=== PATIENT | male | born 1975 | race Caucasian/White ===

== ENCOUNTER 2023-02-17 08:30 | Emergency (ER) | payer OTHER, BC, SELFPAY ==
[2023-02-17] VITALS (13 sets, daily range): BP systolic 91–133; BP diastolic 61–90; PULSE 63–87; RESP 12–20; TEMP 36.4; O2SAT 95–100
--- NOTE | ~2023-02-17 | CT_ITS ---
EXAMINATION: CT brain wo con INDICATION: Head injury COMPARISON: None TECHNIQUE: Standard unenhanced head CT. The dose-length product (DLP) was 681.00 mGy-cm. The mA was a djusted according to patient size. Iterative reconstruction technique was employed. FINDINGS: No intracranial hemorrhage, acute infarction, or abnormal mass lesion. The ventricles are n ormal. No abnormal mass effect or midline shift. The nichole-white matter differentiation is normal. The basal cisterns are patent. The orbits are normal. There is mild mucosal thickening of the paranasal sinuses. There is minimal opacification of the left mastoid air cells. IMPRESSION: 1. No acute intracranial abnormality. Reviewed, dictated and finalized at location A.
--- NOTE | 2023-02-17 08:40 | ECG_ITS ---
Measurements Intervals [place] Rate: 73 P: 62 MT: 179 QRS: 72 QRSD: 114 T: 72 QT: 407 QTc: 449 Interpretive Statements SINUS RHYTHM MODERATE INTRAVENTRICULAR CONDUCTION DELAY [110+ ms QRS DURATION] NO PREVIOUS ECG AVAILABLE FOR COMPARISON Electronically Signed On 02-17-2023 11:01:30 CDT by Mar Mosqueda M.D.
--- NOTE | 2023-02-17 09:21 | ED.GENADULT ---
HPI - General Adult General Chief complaint: Alcohol <Eder Paulson PA-C - Last Filed: 02/17/23 18:14> Stated complaint: ETOH withdrawal <Eder Paulson PA-C - Last Filed: 02/17/23 18:14> Time Seen by Provider: 02/17/23 09:00 <Eder Paulson PA-C - Last Filed: 02/17/23 18:14> Source: patient <FRANK Villegas Last Filed: 02/17/23 18:14> Mode of arrival: ambulatory <Eder Paulson PA-C - Last Filed: 02/17/23 18:14> Limitations: no limitations <Eder Paulson PA-C - Last Filed: 02/17/23 18:14> History of Present Illness HPI narrative: This is a 47-year-old male who presents to the ED with chief complaint of alcoholic intoxication. He states he has been on a 7-day lui drinking only vodka. States his last drink was about 8: 30 AM, 15 minutes prior to arrival. Denies any other substance use. He states he did have a fall yesterday and is unsure if he hit his head. He states he has a little bit of a headache now. He also states my kidneys are shutting down. Patient states that you need to shut me down. He alludes that he is referring to alcoholic detoxification. Denies any further complaints. Denies any abdominal pain, chest pain, shortness of breath, cough, numbness, weakness. <Eder Paulson PA-C - Last Filed: 02/17/23 18:14> Related Data Allergies/adverse reactions: Allergies Allergy/AdvReac Type Severity Reaction Status Date / Time No Known Allergies Allergy Verified 02/17/23 08:45 <Eder Paulson PA-C - Last Filed: 02/17/23 18:14> Review of Systems Review of Systems: All systems as dictated in HPI <Eder Paulson PA-C - Last Filed: 02/17/23 18:14> Exam Narrative: GENERAL: Clinically intoxicated. HEAD: Normocephalic, atraumatic. EYES: PERRLA and EOMI. ENT: Nares clear, no rhinorrhea or epistaxis. Mucous membranes moist. Oropharynx without tonsillar hypertrophy exudate or other lesions. NECK: Supple. No adenopathy or masses. CHEST: No respiratory distress. Clear to auscultation. No wheezes rales or rhonchi HEART: Regular rate and rhythm. No murmur heard. Normal peripheral pulses. ABDOMEN: Soft, nontender, nondistended, normal active bowel sounds. MSK: Normal range of motion. No edema. SKIN: Warm, dry, no rash. NEURO: Alert and oriented x3. No focal deficits. PSYCH: Normal mood and affect. <Eder Paulson PA-C - Last Filed: 02/17/23 18:14> Course Course Emergency Course: Reevaluation 1500: Patient is still having a headache, nausea seems to be shaking when I enter the room. Seems to be agitated as well, but cooperative. <Eder Paulson PA-C - Last Filed: 02/17/23 18:14> RADIO ARTIST/PA Physician Supervision This visit was performed by both a physician and an APC. I performed all aspects of the MDM as documented. <Kailee Arana MD - Last Filed: 02/17/23 21:21> Vital Signs Vital signs: Vital Signs Temperature 97.6 F 02/17/23 08:40 Pulse Rate 78 02/17/23 08:40 Respiratory Rate 15 02/17/23 08:40 Blood Pressure 126/90 02/17/23 08:40 Pulse Oximetry 97 02/17/23 08:40 Oxygen Delivery Room Air 02/17/23 08:40 Temperature 97.6 F 02/17/23 08:40 Pulse Rate 73 02/17/23 17:21 Respiratory Rate 16 02/17/23 17:21 Blood Pressure 133/89 02/17/23 17:21 Pulse Oximetry 98 02/17/23 17:21 Oxygen Delivery Room Air 02/17/23 08:40 <Eder Paulson PA-C - Last Filed: 02/17/23 18:14> Vital Signs Temperature 97.6 F 02/17/23 08:40 Pulse Rate 78 02/17/23 08:40 Respiratory Rate 15 02/17/23 08:40 Blood Pressure 126/90 02/17/23 08:40 Pulse Oximetry 97 02/17/23 08:40 Oxygen Delivery Room Air 02/17/23 08:40 Temperature 97.6 F 02/17/23 08:40 Pulse Rate 73 02/17/23 17:21 Respiratory Rate 16 02/17/23 17:21 Blood Pressure 133/89 02/17/23 17:21 Pulse Oximetry 98 02/17/23 17:21 Oxygen Delivery Room Air 02/17/23 08:40 <Kailee Arana MD - Last Filed: 02/17/23 21:21>
[2023-02-17] MEDS: SODIUM CHLORIDE 0.9% IV 1,000 ML 999 ML IV CONT ×2 (09:45→13:06)
[2023-02-17 10:00] LABS: Basophils Absolute Auto 0.1 K/mm3 (0.0-0.1); Basophils Percent Auto 0.7 % (0.2-1.2); Eosinophils Absolute Auto 0.2 K/mm3 (0-0.3); Eosinophils Percent Auto 3.1 % (0-4.4); Hematocrit 39.5 % (42.0-52.0); Hemoglobin 13.9 g/dL (14.0-18.0); Immature Granulocyte Absolute 0.02 K/mm3 (0.00-0.031); Immature Granulocyte Percent A 0.3 % (0-0.5); Lymphocytes Absolute Auto 3.31 K/mm3 (0.9-3.2); Lymphocytes Percent Auto 49.5 % (18.3-44.2); Mean Corpuscular HGB Conc 35.2 g/dl (32-36); Mean Corpuscular Hemoglobin 30.5 pg (26-34); Mean Corpuscular Volume 86.6 fl (80-100); Mean Platelet Volume 10.2 fl (7.4-10.4); Monocytes Absolute Auto 0.5 K/mm3 (0.1-0.6); Monocytes Percent Auto 7.5 % (2.6-8.5); Neutrophils Absolute Auto 2.6 K/mm3 (1.3-6.7); Neutrophils Percent Auto 38.9 % (45.5-73.1); Platelet Count Result 210 k/mm3 (150-375); Red Blood Count 4.56 M/mm3 (4.6-6.20); Red Cell Distribution Width 11.7 % (11.5-14.5); White Blood Count 6.7 K/mm3 (4.5-10.0)
[2023-02-17 10:11] LABS: Alanine Aminotransferase 23 U/L (6-50); Albumin Level 4.2 g/dL (3.5-5.1); Alkaline Phosphatase 53 U/L (38-126); Anion Gap 9 mmol/L (8-16); Aspartate Amino Transferase 27 U/L (17-59); Bilirubin,Total 0.5 mg/dL (0.2-1.3); Blood Urea Nitrogen 17 mg/dL (9-20); Calcium 8.1 mg/dL (8.4-10.2); Carbon Dioxide 26 mmol/L (22-30); Chloride 106 mmol/L (98-107); Estimated CRCL calculation 150 ml/min; Estimated Glomerular Filt Rate > 60; Glucose 143 mg/dL (65-110); Potassium 3.7 mmol/L (3.4-5.0); Sodium 141 mmol/L (137-145)
--- NOTE | 2023-02-17 12:35 | PCCCNOTE ---
Met with pt and person with him. He is still not clear and able to make sound decisions. They were given writtne list of ETOH/substance abuse resources. They also wanted to talk with Markus. Angela introduced and she will be following him as OP when he discharges. Following
[2023-02-17] MEDS: ONDANSETRON INJ 4 MG/2 ML VIAL IV PUSH (13:07)
--- NOTE | 2023-02-17 14:56 | PC.NURSE ---
Updated provider on pt CIWA reassessment score of 13.
[2023-02-17] MEDS: LORazepam INJ (*CRX) 2 MG/ML VIAL 1 MG IV PUSH (15:08)
[2023-02-17 15:54] LABS: Ethanol 257 mg/dL (<10)
[2023-02-17] MEDS: chlordiazePOXIDE (*CRX) 25 MG CAPSULE 50 MG PO (16:55)
== END 2023-02-17 17:25 | disposition home or self-care (01) ==
PROVIDERS: Emergency Provider Physician Assistant; PCP Emergency Medicine
DX: F10.239 Alcohol dependence with withdrawal, unspecified (principal); Y90.8 Blood alcohol level of 240 mg/100 ml or more; R51.9 Headache, unspecified; W19.XXXA Unspecified fall, initial encounter
CPT/HCPCS: 36415; 70450; 80053; 80307; 85025; 93005; 96361; 96374; 96375; 99284; A9270; J2060; J2405; J7030

== ENCOUNTER 2023-03-20 09:01 | Emergency (ER) | payer OTHER, BC, SELFPAY ==
--- NOTE | ~2023-03-20 | CT_ITS ---
EXAMINATION: CT BRAIN W/O DATE: 03/20/2023 09:52 INDICATION: Headache TECHNIQUE: Computed tomography (CT) of the head was performed without intravenous contrast. The dose- length product was 605.33 mGy-cm. Automated exposure control and iterative reconstruction technique w ere employed. COMPARISON: No prior studies for comparison. FINDINGS: Normal brain parenchymal volume for age. Normal nichole-white differentiation. No acute intrac ranial hemorrhage, infarction, mass or mass effect. No ventriculomegaly or midline shift. Midline sagittal images demonstrate a normal corpus callosum, c raniovertebral junction and sella turcica. Basilar cisterns are patent. Paranasal sinuses and mastoids are pneumatized. No depressed skull fractures. IMPRESSION: 1. No acute intracranial abnormality. Reviewed, dictated and finalized at location A.
--- NOTE | ~2023-03-20 | CT_ITS ---
EXAMINATION: CT cervical spine wo con DATE: 03/20/2023 09:52 INDICATION: Neck pain TECHNIQUE: Computed tomography (CT) of the cervical spine was performed without intravenous contrast. The dose-length product was 508 mGy-cm. Automated exposure control and iterative reconstruction technique were employed. COMPARISON: None FINDINGS: Straightening of cervical lordosis. There is mild degenerative disc disease with spondylosi s at C4-5 and C5-6. There is mild multilevel uncinate hypertrophy. There is emphysematous changes of the lung apices. Craniovertebral junction is normal. No acute fracture or traumatic malalignment. No evidence for perched facet. No significant paraspinal soft tissue abnormality. IMPRESSION: 1. Mild cervical spondylosis. Reviewed, dictated and finalized at location A.
[2023-03-20 09:05] VITALS: BP 132/90; PULSE 75; RESP 18; TEMP 36.4; O2SAT 97
--- NOTE | 2023-03-20 09:36 | ED.GENADULT ---
HPI - General Adult General Chief complaint: Back Pain/Injury Stated complaint: Back pain; dizzy Time Seen by Provider: 03/20/23 09:04 History of Present Illness HPI narrative: Tomas Ronquillo is a 47 y/o male with reports of drinking EOTH pretty hard last night and was at work this morning and went to reach for something heavy and felt something pop/pain to his right lateral neck and now he is also having a headache, he doesn't feel like this is a hangover headache but feels like he pulled something in his neck. He denies chest pain/ shortness of breath/numbness/tingling/ smells of ETOH he admits to ETOH last night but not this morning. Related Data Allergies Allergy/AdvReac Type Severity Reaction Status Date / Time No Known Allergies Allergy Verified 02/17/23 08:45 Review of Systems Review of Systems: CONSTITUTIONAL: Denies fever, chills, or sweats. EYES: Denies visual changes, redness, or discharge. ENT: Denies rhinorrhea, congestion, sore throat, or otalgia. CARDIOVASCULAR: Denies chest pain, palpitations, or edema. RESPIRATORY: Denies cough or dyspnea. GASTROINTESTINAL: Denies abdominal pain, nausea, vomiting, or diarrhea. GENITOURINARY: Denies dysuria or hematuria. SKIN: Denies rash or itching. MUSCULOSKELETAL: Denies back pain, joint pain, or myalgia. NEUROLOGIC: reports headache started this morning, no numbness, dizziness, or weakness. PSYCHIATRIC: Denies anxiety or depression. Exam Narrative: GENERAL: Well-appearing, well-nourished, and in no acute distress. HEAD: Normocephalic, atraumatic. EYES: PERRLA and EOMI. ENT: Nares clear, no rhinorrhea or epistaxis. Mucous membranes moist. Oropharynx without tonsillar hypertrophy exudate or other lesions. NECK: Supple. No adenopathy or masses. No carotid bruits or JVD CHEST: Clear to auscultation. No respiratory distress. No wheezes rales or rhonchi HEART: Regular rate and rhythm. No murmur heard. Normal peripheral pulses. ABDOMEN: Soft, nontender, nondistended, normal active bowel sounds. EXTREMITIES: Normal range of motion. No edema. SKIN: Warm, dry, no rash. NEURO: No focal deficits. Alert and oriented x3. PSYCH: Normal mood and affect. Course Vital Signs Vital signs: Vital Signs Temperature 36.4 C 03/20/23 09:05 Pulse Rate 75 03/20/23 09:05 Respiratory Rate 18 03/20/23 09:05 Blood Pressure 132/90 03/20/23 09:05 Pulse Oximetry 97 03/20/23 09:05 Oxygen Delivery Room Air 03/20/23 09:05 Temperature 36.4 C 03/20/23 09:05 Pulse Rate 75 03/20/23 09:05 Respiratory Rate 18 03/20/23 09:05 Blood Pressure 132/90 03/20/23 09:05 Pulse Oximetry 97 03/20/23 09:05 Oxygen Delivery Room Air 03/20/23 09:05 Medical Decision Making MDM Narrative Medical decision making narrative: On exam pt's neuro exam is intact, 5/5 strength noted to upper and lower extremities Pupils equal and reactive No cervical/ thoracic/lumbar midline spinal tenderness noted with palpation / no step offs/ erythema/ ecchymosis/ deformity noted on exam. Ambulatory / moving all extremities well, he admits to drinking heavy last night and having a a headache today after reaching to pull on something heavy today while at work and felt pain to his neck as well He states that he feels that he pulled something in his neck plan to check CT of head and neck and treat him with a migraine cocktail while checking basic labs. Patient re-evaluated and reports that his headache is gone and feeling better, he is updated that his CT's are stable and that he likely pulled a muscle in his neck, pt agrees with this and denies having any further questions or needs. He sates that he is not driving, he has someone that is coming to pick him up. Differential Diagnosis Differential Diagnosis: Neck strain/ head bleed/ migraine/ hangover/ Medical Records Medical records reviewed: Yes I reviewed the external patient's medical records. Vital Signs Vital Signs: V
[2023-03-20 09:54] VITALS: BP 94/69; O2SAT 97
[2023-03-20 09:55] VITALS: O2SAT 95
[2023-03-20] MEDS: PROCHLORPERAZINE EDISYLATE 10 MG/2 ML VIAL IV PUSH (09:55)
[2023-03-20] MEDS: diphenhydrAMINE HCl INJ 50 MG/ML VIAL 25 MG IV PUSH (09:55)
[2023-03-20] MEDS: SODIUM CHLORIDE 0.9% IV 1,000 ML 999 ML IV CONT (09:56)
[2023-03-20 10:00] VITALS: O2SAT 95
[2023-03-20 10:01] VITALS: BP 106/74; O2SAT 91
[2023-03-20 10:02] LABS: Basophils Percent Auto 0.5 % (0.2-1.2); Eosinophils Absolute Auto 0.2 K/mm3 (0-0.3); Eosinophils Percent Auto 3.8 % (0-4.4); Hematocrit 38.7 % (42.0-52.0); Hemoglobin 13.5 g/dL (14.0-18.0); Immature Granulocyte Absolute 0.01 K/mm3 (0.00-0.031); Immature Granulocyte Percent A 0.2 % (0-0.5); Lymphocytes Absolute Auto 2.81 K/mm3 (0.9-3.2); Lymphocytes Percent Auto 50.7 % (18.3-44.2); Mean Corpuscular HGB Conc 34.9 g/dl (32-36); Mean Corpuscular Hemoglobin 29.9 pg (26-34); Mean Corpuscular Volume 85.8 fl (80-100); Mean Platelet Volume 10.1 fl (7.4-10.4); Monocytes Absolute Auto 0.4 K/mm3 (0.1-0.6); Monocytes Percent Auto 7.4 % (2.6-8.5); Neutrophils Absolute Auto 2.1 K/mm3 (1.3-6.7); Neutrophils Percent Auto 37.4 % (45.5-73.1); Platelet Count Result 192 k/mm3 (150-375); Red Blood Count 4.51 M/mm3 (4.6-6.20); Red Cell Distribution Width 12.1 % (11.5-14.5); White Blood Count 5.5 K/mm3 (4.5-10.0)
[2023-03-20 10:12] LABS: Anion Gap 13 mmol/L (8-16); Blood Urea Nitrogen 10 mg/dL (9-20); Calcium 8.2 mg/dL (8.4-10.2); Carbon Dioxide 23 mmol/L (22-30); Chloride 103 mmol/L (98-107); Estimated CRCL calculation 147 ml/min; Estimated Glomerular Filt Rate > 60; Glucose 132 mg/dL (65-110); Potassium 3.8 mmol/L (3.4-5.0); Sodium 139 mmol/L (137-145)
[2023-03-20] MEDS: KETOROLAC 30 MG/ML VIAL (*BKC) IV PUSH (10:15)
== END 2023-03-20 10:36 | disposition home or self-care (01) ==
PROVIDERS: Emergency Provider Nurse Practitioner Family; PCP Emergency Medicine
DX: S16.1XXA Strain of muscle, fascia and tendon at neck level, initial encounter (principal); M47.812 Spondylosis without myelopathy or radiculopathy, cervical region; X50.0XXA Overexertion from strenuous movement or load, initial encounter
CPT/HCPCS: 36415; 70450; 72125; 80048; 85025; 96361; 96374; 96375; 99284; J0780; J1200; J1885; J7030

== ENCOUNTER 2024-12-16 04:11 | Emergency (ER) | payer OTHER, SELFPAY ==
[2024-12-16] VITALS (9 sets, daily range): BP systolic 105–148; BP diastolic 62–91; PULSE 78–87; RESP 16; TEMP 36.6; O2SAT 93–97
[2024-12-16] MEDS: ORPHENADRINE CITRATE 100 MG TABLET.ER PO (05:03)
[2024-12-16] MEDS: HYDROcodone/acetaminophen (*CRX) 5-325 MG TABLET 1 TAB PO (05:03)
[2024-12-16] MEDS: dexAMETHasone SOD PHOS INJ 10 MG/ML 1 ML VIAL IM (05:04)
[2024-12-16] MEDS: KETOROLAC 30 MG/ML VIAL (*BKC) IM (05:05)
[2024-12-16] MEDS: LIDOCAINE 5% PATCH 1 PATCH TRANSDERM (05:05)
--- NOTE | 2024-12-16 05:38 | ED_ITS ---
HPI - General Adult General Chief complaint: Extremity Problem,Nontraumatic Stated complaint: right hip pain Time Seen by Provider: 12/16/24 04:30 History of Present Illness HPI narrative: Patient 49-year-old gentleman who presents emergency department with chief complaint of right hip pain radiating down his right leg. The patient states his leg locked up on him reports that he has pain that radiates to the but she down there is leg patient does report there is little bit of a tingly sensation on his right foot on the lateral aspect patient denies bowel or bladder incontinence denies trauma Related Data Allergies Allergy/AdvReac Type Severity Reaction Status Date / Time No Known Allergies Allergy Verified 02/17/23 08:45 Review of Systems Review of Systems: A 10 system review of systems was completed on the patient and is negative except for what is stated in the HPI. Nursing and ancillary documentation was reviewed. Exam Narrative: GENERAL: Well-appearing, well-nourished, and in no acute distress. HEAD: Normocephalic, atraumatic. EYES: PERRLA and EOMI. ENT: Nares clear, no rhinorrhea or epistaxis. Mucous membranes moist. NECK: Supple. CHEST: Clear to auscultation. No respiratory distress. HEART: Regular rate and rhythm. No murmur heard. Normal peripheral pulses. ABDOMEN: Soft, nontender, nondistended, normal active bowel sounds. EXTREMITIES: Normal range of motion. No edema. Tenderness to palpation the right SI joint along the sciatic nerve SKIN: Warm, dry, no rash. NEURO: No focal deficits. Alert and oriented x3. No footdrop, no saddle anesthesia PSYCH: Normal mood and affect. Course Vital Signs Vital signs: Vital Signs Temperature 36.6 C 12/16/24 04:15 Pulse Rate 87 12/16/24 04:15 Respiratory Rate 16 12/16/24 04:15 Blood Pressure 122/79 12/16/24 04:15 Pulse Oximetry 97 12/16/24 04:15 Oxygen Delivery Room Air 12/16/24 04:15 Temperature 36.6 C 12/16/24 04:15 Pulse Rate 87 12/16/24 04:15 Respiratory Rate 16 12/16/24 04:15 Blood Pressure 105/62 12/16/24 05:02 Pulse Oximetry 93 12/16/24 05:30 Oxygen Delivery Room Air 12/16/24 04:15 Medical Decision Making Vital Signs Vital Signs: Vital Signs Temperature 36.6 C 12/16/24 04:15 Pulse Rate 87 12/16/24 04:15 Respiratory Rate 16 12/16/24 04:15 Blood Pressure 122/79 12/16/24 04:15 Pulse Oximetry 97 12/16/24 04:15 Oxygen Delivery Room Air 12/16/24 04:15 Temperature 36.6 C 12/16/24 04:15 Pulse Rate 87 12/16/24 04:15 Respiratory Rate 16 12/16/24 04:15 Blood Pressure 105/62 12/16/24 05:02 Pulse Oximetry 93 12/16/24 05:30 Oxygen Delivery Room Air 12/16/24 04:15 Discharge Plan Discharge Clinical Impression: Right sided sciatica Patient Disposition: Home Condition: Stable Instructions: Antibiotic Form, Sciatica (ED) Patient Language: Puerto Rican Prescriptions: New diclofenac potassium 50 mg tablet 50 mg PO TID PRN (Reason: pain) Qty: 30 0RF prednisone 20 mg tablet 40 mg PO DAILY 5 Days Qty: 10 0RF lidocaine [Lidoderm] 5 % adhesive patch,medicated 1 patch topical DAILY Qty: 15 0RF Rx Instructions: leave on most painful area for up to 12 hrs cyclobenzaprine 10 mg tablet 10 mg PO TID PRN (Reason: muscle spasm) Qty: 21 0RF No Action chlordiazepoxide HCl 25 mg capsule 25 mg PO BID PRN (Reason: alcohol withdrawal) Qty: 14 0RF Rx Instructions: 50mg of chlordiazepoxide every 8 hours for two days, then decrease to 25mg every 8 hours for another two days followed by 25mg PRN as needed. lidocaine 5 % adhesive patch,medicated 1 patch topical DAILY Qty: 15 0RF Rx Instructions: leave on most painful area for up to 12 hrs cyclobenzaprine 5 mg tablet 5 mg PO BID PRN (Reason: muscle spasm) Qty: 14 0RF Follow-up/Referrals: Guillermo Mukherjee MD [Primary Care Provider] - Time of Disposition: 05:41
== END 2024-12-16 06:02 | disposition home or self-care (01) ==
PROVIDERS: Emergency Provider Emergency Medicine; PCP Emergency Medicine
DX: M54.31 Sciatica, right side (principal)
CPT/HCPCS: 96372; 99284; A9270; J1100; J1885

== ENCOUNTER 2024-12-19 23:54 | Emergency (ER) | payer OTHER, SELFPAY ==
--- NOTE | ~2024-12-19 | CT_ITS ---
Noncontrast CT scan of the lumbar spine CLINICAL HISTORY: Right-sided radiculopathy TECHNIQUE: Axial noncontrast imaging of the lumbar spine was performed. Sagittal and coronal reformat kris images were constructed. Dose reduction technique was used on this scan by utilizing automated ex posure control and iterative reconstruction technique. The dose-length product (DLP) was 1545.55 mGy- cm. FINDINGS: There is no acute fracture or subluxation. Vertebral bodies maintain normal height and alig nment. At L1-L2, there is no disc bulge or herniation. No spinal canal stenosis or neural foraminal narrowin g. At L2-L3, there is no disc bulge or herniation. There is minimal facet hypertrophy. No spinal canal s tenosis or definite neural foraminal narrowing. At L3-L4, there is minimal disc bulge and minimal facet arthropathy. No definite canal stenosis. Ther e is mild bilateral foraminal narrowing. At L4-L5, there is no significant disc bulge or herniation. No spinal canal stenosis. There is modera te right neural foraminal narrowing. Left neural foramen preserved. At L5-S1, there is mild diffuse disc bulge. No spinal canal stenosis. There is severe bilateral neura l foraminal narrowing. Paravertebral soft tissues are unremarkable. Impression: Severe bilateral neural foraminal narrowing at L5-S1. Moderate right neural foraminal narrowing at L4 -L5. Reviewed, dictated and finalized at [facility]. Impression: Severe bilateral neural foraminal narrowing at L5-S1. Moderate right neural for aminal narrowing at L4-L5.
[2024-12-20] VITALS: BP 133/98; PULSE 101; RESP 20; TEMP 36.7; O2SAT 96
--- NOTE | 2024-12-20 01:04 | ED_ITS ---
HPI - Extremity Problem General Chief complaint: Extremity Problem,Nontraumatic Stated complaint: leg pain Time Seen by Provider: 12/20/24 00:52 History of Present Illness HPI Narrative: 49-year-old male presents emergency department for pain from his right hip that radiates down his right leg for 1 week. Patient states a week ago he was walking through [employer] when he had a sudden onset sharp pain to his right posterior hip that radiated to his feet. He states the pain is been constant since. He describes it is a sharp and shooting pain that starts in the right posterior hip radiates down the back of the leg and wraps around to the front of his lower leg into his big toe. He reports some associated tingling but denies any numbness. He denies saddle anesthesia, bowel or bladder incontinence, urinary retention, fever, surgeries or procedures to his back, IV drug use, i njury or trauma. Patient was evaluated in our ED 4 days ago for the same complaint. He was diagnosed with right-sided sciatica and discharged home with diclofenac, prednisone, lidocaine patch cyclobenzaprine. Patient states he has been taking these medications without improvement so discontinued them yesterday. Beyond the steroids he was prescribed 4 days ago, he denies any other steroids or immunosuppressants. Patient is requesting a steroid shot. Related Data Allergies Allergy/AdvReac Type Severity Reaction Status Date / Time No Known Allergies Allergy Verified 12/20/24 00:03 Review of Systems Review of Systems: All systems reviewed & are unremarkable except as noted in HPI and below Exam Narrative: GENERAL: Well-appearing, well-nourished, and in no acute distress. HEAD: Normocephalic, atraumatic. EYES: EOMI. ENT: Nares clear, no rhinorrhea or epistaxis. Mucous membranes moist. NECK: Supple. CHEST: Clear to auscultation. No respiratory distress. HEART: Regular rate and rhythm. No murmur heard. Normal peripheral pulses. ABDOMEN: Soft, nontender, nondistended, normal active bowel sounds. BACK: No significant midline spinous tenderness, crepitus step-offs or deformities. Tenderness to the right SI joint and over the right piriformis with no overlying skin changes. Patient has full active and passive range of motion of hip and lower extremity. No warmth erythema throughout. No edema. Positive right straight leg raise. Sensation intact throughout. Strength 5/5 in BLE. Right DP pulses 2+. Extremity is pink, warm and dry. EXTREMITIES: Normal range of motion. No edema. SKIN: Warm, dry, no rash. NEURO: No focal deficits. Alert and oriented x3 Course Vital Signs Vital signs: Vital Signs Temperature 98.0 F 12/20/24 00:00 Pulse Rate 101 H 12/20/24 00:00 Respiratory Rate 20 12/20/24 00:00 Blood Pressure 133/98 H 12/20/24 00:00 Pulse Oximetry 96 12/20/24 00:00 Oxygen Delivery Room Air 12/20/24 00:00 Temperature 98.0 F 12/20/24 00:00 Pulse Rate 101 H 12/20/24 00:00 Respiratory Rate 20 12/20/24 00:00 Blood Pressure 133/98 H 12/20/24 00:00 Pulse Oximetry 96 12/20/24 00:00 Oxygen Delivery Room Air 12/20/24 00:00 MDM - Extremity (Nontraumatic) MDM Narrative Medical decision making narrative: 49-year-old male presents to the emergency department for right posterior hip pain that radiates down his right leg for the past week. No injury or trauma. Vitals with elevated blood pressure 133/98, otherwise unremarkable. Patient is afebrile and nontoxic appearing. Exam is significant for point tenderness over the right SI and right piriformis with positive straight leg raise. He is neurovascularly intact. No significant midline spinous tenderness, crepitus, step-offs or deformities. He has no red flag back pain signs other than his most recent couple days of prednisone he was prescribed at his visit here on 12/18/2024 after a diagnosis of right-sided sciatica. Notes reviewed from his visit. He did not have any imaging at that time. Will obtain CT lumbar spine without contrast today. He is requesting a steroid shot. Will provide IM Decadron, Valium, Lidoderm patch and [place]. Patient called out and notified that he feels much better and is ready to go home. He is requesting to leave prior to receiving his CT results. He was advised to follow-up closely with PCP and advised that he may need physical therapy. He is requesting to try different muscle relaxer, will send metacarpal pharmacy. Also sent hydrocodone for breakthrough pain. Discussed strict ED return precautions. He is agreeable with the plan verbalized understanding. Discharged in stable condition. Discharge Plan Discharge Clinical Impression: Acute right-sided back pain with sciatica Patient Disposition: Home Condition: Stable Instructions: Antibiotic Form, Sciatica (ED), Lower Back Exercises (ED) Additional Instructions: You left prior to receiving results of your CT scan. Please take the medications as directed. Do not take the muscle relaxer with the narcotic hydrocodone. Follow-up closely with primary care provider as she may need physical therapy for further management. Return to the emergency department if you develop a fever, numbness in your groin, lose control of your bowel or bladder, or other concerning symptoms. Patient Language: Mongolian Prescriptions: New hydrocodone-acetaminophen 5-325 mg tablet 1 tablet PO Q8H PRN (Reason: pain) Qty: 10 0RF methocarbamol 750 mg tablet 750 mg PO QID Qty: 14 0RF No Action chlordiazepoxide HCl 25 mg capsule 25 mg PO BID PRN (Reason: alcohol withdrawal) Qty: 14 0RF Rx Instructions: 50mg of chlordiazepoxide every 8 hours for two days, then decrease to 25mg every 8 hours for another two days followed by 25mg PRN as needed. lidocaine 5 % adhesive patch,medicated 1 patch topical DAILY Qty: 15 0RF Rx Instructions: leave on most painful area for up to 12 hrs cyclobenzaprine 5 mg tablet 5 mg PO BID PRN (Reason: muscle spasm) Qty: 14 0RF diclofenac potassium 50 mg tablet 50 mg PO TID PRN (Reason: pain) Qty: 30 0RF prednisone 20 mg tablet 40 mg PO DAILY 5 Days Qty: 10 0RF lidocaine [Lidoderm] 5 % adhesive patch,medicated 1 patch topical DAILY Qty: 15 0RF Rx Instructions: leave on most painful area for up to 12 hrs cyclobenzaprine 10 mg tablet 10 mg PO TID PRN (Reason: muscle spasm) Qty: 21 0RF Follow-up/Referrals: Guillermo Mukherjee MD [Primary Care Provider] -
[2024-12-20] MEDS: HYDROcodone/acetaminophen (*CRX) 5-325 MG TABLET 1 TAB PO (01:24)
[2024-12-20] MEDS: LIDOCAINE 5% PATCH 1 PATCH TRANSDERM (01:25)
[2024-12-20] MEDS: dexAMETHasone SOD PHOS INJ 10 MG/ML 1 ML VIAL IM (01:29)
[2024-12-20] MEDS: diazePAM INJ (*CRX) 10 MG/2 ML SYRINGE 5 MG IM (01:30)
== END 2024-12-20 03:03 | disposition home or self-care (01) ==
PROVIDERS: Emergency Provider Physician Assistant; PCP Emergency Medicine
DX: M54.41 Lumbago with sciatica, right side (principal)
CPT/HCPCS: 72131; 96372; 99284; A9270; J1100; J3360